=== PATIENT | female | born 1950 | race Caucasian/White ===

== ENCOUNTER 2018-08-05 10:02 | Outpatient (CLI) | payer MEDICARE, OTHER, SELFPAY ==
[2018-08-05 10:49] LABS: Absolute Basophil Count 0.05 k/cumm (0.0-0.2); Absolute Eosinophil Count 0.37 k/cumm (0.0-0.7); Absolute Lymphocyte Count 1.62 k/cumm (1.2-3.4); Absolute Monocyte Count 0.37 k/cumm (0.11-0.7); Absolute Neutrophil Count 3.42 k/cumm (1.2-6.7); Basophils % 0.9; Eosinophils % 6.3; HCT 42.7 % (36.0-46.0); HGB 13.9 g/dL (12.0-15.5); Lymphocytes % 27.8; Mean Corp. HGB Concentration 32.6 g/dL (32.0-36.0); Monocytes % 6.3; Neutrophils % 58.7; Platelet Count 230 x1000/uL (130-400); RBC 4.64 m/cumm (4.00-5.20); RBC Distribution Width 12.9 % (11.7-14.6); White Blood Cell Count 5.83 k/cumm (4.4-10.8)
[2018-08-05 11:27] LABS: ALT 31 U/L (12-78); AST 26 U/L (15-37); Albumin 3.7 g/dL (3.4-5.0); Alkaline Phosphatase 103 U/L (46-116); Anion Gap 7.5 mmol/L (3-11); BUN 17 mg/dL (7-18); Bilirubin, Total 0.4 mg/dL (0.2-1.0); CO2 29.5 mmol/L (21.0-32.0); CREATININE 0.79 mg/dL (0.55-1.02); Chloride 108 mmol/L (98-107); Glucose 87 mg/dL (70-100); Potassium 4.6 mmol/L (3.5-5.1); Sodium 145 mmol/L (136-145); Total Protein 7.2 g/dL (6.4-8.2)
== END 2018-08-05 10:22 ==
PROVIDERS: PCP Family Medicine; Visit Provider Family Medicine
DX: L71.9 Rosacea, unspecified (principal); K51.90 Ulcerative colitis, unspecified, without complications
CPT/HCPCS: 36415; 80053; 85025

== ENCOUNTER → 2018-10-28 13:56 | Outpatient (BNVA) | payer MEDICARE, OTHER, SELFPAY | PROVIDERS: PCP Family Medicine; Referring Provider Family Medicine; Visit Provider Student in an Organized Health Care Education/Training Program | DX: M17.12 Unilateral primary osteoarthritis, left knee (principal) | CPT/HCPCS: 20610; 99212; 99213; J1040 ==

== ENCOUNTER → 2019-04-02 09:44 | Outpatient (BNVA) | payer MEDICARE, OTHER, SELFPAY | PROVIDERS: PCP Family Medicine; Referring Provider Family Medicine; Visit Provider Student in an Organized Health Care Education/Training Program | DX: M25.562 Pain in left knee (principal); M17.12 Unilateral primary osteoarthritis, left knee | CPT/HCPCS: 20610; 99213; J1040 ==

== ENCOUNTER 2019-06-04 19:00 | Outpatient (REF) | payer MEDICARE, OTHER, SELFPAY | END 2019-06-04 19:20 | LOC: LBN 19:00 | PROVIDERS: PCP Family Medicine; Visit Provider Nurse Practitioner Family | DX: N89.8 Other specified noninflammatory disorders of vagina (principal) | CPT/HCPCS: 87480; 87510; 87660 ==

== ENCOUNTER → 2019-06-16 09:13 | Outpatient (BNVA) | payer MEDICARE, OTHER, SELFPAY | PROVIDERS: PCP Family Medicine; Referring Provider Family Medicine; Visit Provider Student in an Organized Health Care Education/Training Program | DX: M25.562 Pain in left knee (principal); M17.12 Unilateral primary osteoarthritis, left knee; Z98.890 Other specified postprocedural states | CPT/HCPCS: 99213 ==

== ENCOUNTER 2019-08-02 01:07 | Outpatient (CLI) | payer MEDICARE, OTHER, SELFPAY ==
[2019-08-02 14:10] LABS: Abs Immature Grans 0.01 k/cumm (0.0-0.09); Absolute Basophil Count 0.05 k/cumm (0.0-0.2); Absolute Eosinophil Count 0.27 k/cumm (0.0-0.7); Absolute Lymphocyte Count 1.51 k/cumm (1.2-3.4); Absolute Monocyte Count 0.36 k/cumm (0.11-0.7); Absolute Neutrophil Count 3.21 k/cumm (1.2-6.7); Basophils % 0.9; HCT 39.1 % (36.0-46.0); HGB 12.6 g/dL (12.0-15.5); Immature Grans % 0.2; Lymphocytes % 27.9; Mean Corp. HGB Concentration 32.2 g/dL (32.0-36.0); Mean Corpuscular Hemoglobin 30.4 pg (27.0-33.0); Mean Corpuscular Volume 94.4 fL (80-95); Mean Platelet Volume 9.3 fL (8.0-11.0); Monocytes % 6.7; Neutrophils % 59.3; Platelet Count 252 x1000/uL (130-400); RBC 4.14 m/cumm (4.00-5.20); RBC Distribution Width 12.4 % (11.7-14.6); White Blood Cell Count 5.41 k/cumm (4.4-10.8)
[2019-08-02 14:26] LABS: ALT 50 U/L (14-59); AST 30 U/L (15-37); Albumin 3.4 g/dL (3.4-5.0); Alkaline Phosphatase 120 U/L (46-116); BUN 19 mg/dL (7-18); Bilirubin, Total 0.3 mg/dL (0.2-1.0); CREATININE 0.88 mg/dL (0.55-1.02); Calcium 8.9 mg/dL (8.5-10.1); Chloride 107 mmol/L (98-107); Glucose 120 mg/dL (70-100); Potassium 4.9 mmol/L (3.5-5.1); Sodium 143 mmol/L (136-145); TSH 0.79 uIU/mL (0.36-3.74); Total Protein 6.5 g/dL (6.4-8.2); Vitamin B12 385 pg/mL (193-986)
[2019-08-03 08:59] LABS: Hemoglobin A1C 5.7 % (4.5-6.2)
== END 2019-08-02 01:27 ==
PROVIDERS: PCP Family Medicine; Visit Provider Family Medicine
DX: D64.9 Anemia, unspecified (principal); K51.90 Ulcerative colitis, unspecified, without complications; M85.80 Other specified disorders of bone density and structure, unspecified site; R73.01 Impaired fasting glucose
CPT/HCPCS: 36415; 80053; 82607; 83036; 84443; 85025

== ENCOUNTER 2019-08-12 11:22 | Outpatient (CLI) | payer MEDICARE, OTHER, SELFPAY ==
--- NOTE | 2019-08-12 10:29 | DI.RAD_ITS ---
EXAM: XR FOOT LT COMPLETE INDICATION: L foot pain. COMPARISON: No exams were available for comparison TECHNIQUE: 2D digital imaging was performed. FINDINGS: Three views were obtained. There is small osteophyte at the site of attachment of plantar fascia on the calcaneus. Mild degenerative changes of the joints of the midfoot and forefoot noted. No other significant bony abnormality seen.
== END 2019-08-12 11:42 ==
PROVIDERS: PCP Family Medicine; Referring Provider Family Medicine; Visit Provider Student in an Organized Health Care Education/Training Program
DX: M79.672 Pain in left foot (principal); M19.072 Primary osteoarthritis, left ankle and foot; M25.772 Osteophyte, left ankle
CPT/HCPCS: 99214; 73630

== ENCOUNTER → 2019-10-08 09:54 | Outpatient (BNVA) | payer MEDICARE, OTHER, SELFPAY | PROVIDERS: PCP Family Medicine; Referring Provider Family Medicine; Visit Provider Student in an Organized Health Care Education/Training Program | DX: M17.12 Unilateral primary osteoarthritis, left knee (principal); M25.562 Pain in left knee | CPT/HCPCS: 20610; 99213; J1040 ==

== ENCOUNTER 2020-08-08 03:49 | Outpatient (CLI) | payer MEDICARE, OTHER, SELFPAY ==
[2020-08-08 12:50] LABS: Abs Immature Grans 0.01 10^3/uL (0.0-0.06); Absolute Basophil Count 0.06 10^3/uL (0.0-0.2); Absolute Lymphocyte Count 1.73 10^3/uL (1.2-3.4); Absolute Monocyte Count 0.31 10^3/uL (0.1-0.8); Absolute Neutrophil Count 2.52 10^3/uL (1.2-6.7); Basophils % 1.2; HCT 40.8 % (36.0-46.0); Immature Grans % 0.2; Lymphocytes % 34.4; MCH 30.2 pg (27.0-33.0); MCHC 31.9 % (32.0-36.0); MCV 94.7 fL (80-95); MPV 9.6 fL (8.0-11.0); Monocytes % 6.2; Nucleated RBC 0 %; Platelet Count 254 10^3/uL (130-400); RBC 4.31 10^6/uL (3.93-5.22); RDW 12.5 % (11.7-14.6); RDW-SD 43.5 fL; WBC 5.03 10^3/uL (4.4-10.8)
[2020-08-08 13:04] LABS: Hemoglobin A1C 5.3 % (<5.7)
[2020-08-08 13:05] LABS: ALT 37 U/L (14-59); AST 33 U/L (15-37); Albumin 3.9 g/dL (3.4-5.0); Alkaline Phosphatase 108 U/L (46-116); Anion Gap 6.7 mmol/L (3-11); BUN 21 mg/dL (7-18); Bilirubin, Total 0.5 mg/dL (0.2-1.0); CO2 28.3 mmol/L (21.0-32.0); CREATININE 0.95 mg/dL (0.55-1.02); Calcium 9.4 mg/dL (8.5-10.1); Chloride 107 mmol/L (98-107); Estimated GFR 58.16 (mL/min/1.73m2); Glucose 92 mg/dL (74-106); Potassium 5.1 mmol/L (3.5-5.1); Sodium 142 mmol/L (136-145); Total Protein 7.2 g/dL (6.4-8.2)
== END 2020-08-08 04:09 ==
PROVIDERS: PCP Family Medicine; Visit Provider Family Medicine
DX: R73.01 Impaired fasting glucose (principal); D64.9 Anemia, unspecified
CPT/HCPCS: 36415; 80053; 83036; 85025

== ENCOUNTER 2021-01-18 03:22 | Outpatient (CLI) | payer MEDICARE, OTHER, SELFPAY ==
[2021-01-18 12:13] LABS: Abs Immature Grans 0.01 10^3/uL (0.0-0.06); Absolute Basophil Count 0.06 10^3/uL (0.0-0.2); Absolute Eosinophil Count 0.19 10^3/uL (0.0-0.7); Absolute Lymphocyte Count 1.49 10^3/uL (1.2-3.4); Absolute Monocyte Count 0.31 10^3/uL (0.1-0.8); Absolute Neutrophil Count 2.65 10^3/uL (1.2-6.7); Basophils % 1.3; HCT 40.1 % (36.0-46.0); Immature Grans % 0.2; Lymphocytes % 31.6; MCH 30.1 pg (27.0-33.0); MCHC 32.4 % (32.0-36.0); MCV 92.8 fL (80-95); MPV 9.4 fL (8.0-11.0); Monocytes % 6.6; Neutrophils % 56.3; Nucleated RBC 0 %; Platelet Count 244 10^3/uL (130-400); RBC 4.32 10^6/uL (3.93-5.22); RDW 12.1 % (11.7-14.6); RDW-SD 41.5 fL; WBC 4.71 10^3/uL (4.4-10.8)
[2021-01-18 12:29] LABS: Hemoglobin A1C 5.8 % (<5.7)
[2021-01-18 13:10] LABS: ALT 40 U/L (14-59); AST 30 U/L (15-37); Albumin 3.8 g/dL (3.4-5.0); Alkaline Phosphatase 98 U/L (46-116); BUN 20 mg/dL (7-18); Bilirubin, Total 0.4 mg/dL (0.2-1.0); C-Reactive Protein 0.19 mg/dL (0.0-0.3); CREATININE 0.9 mg/dL (0.55-1.02); Calcium 9.2 mg/dL (8.5-10.1); Chloride 107 mmol/L (98-107); Glucose 109 mg/dL (74-106); Potassium 5.4 mmol/L (3.5-5.1); Sodium 142 mmol/L (136-145); Total Protein 7.1 g/dL (6.4-8.2)
[2021-01-18 16:27] LABS: ESR 9 mm/hr (<or=30)
== END 2021-01-18 03:23 | disposition home or self-care (01) ==
LOC: LBO 03:22
PROVIDERS: PCP Family Medicine; Visit Provider Nurse Practitioner Adult Health
DX: R73.01 Impaired fasting glucose (principal); K52.9 Noninfective gastroenteritis and colitis, unspecified; K51.00 Ulcerative (chronic) pancolitis without complications
CPT/HCPCS: 36415; 80053; 85652; 83036; 85025; 86140

== ENCOUNTER 2021-02-26 10:30 | Outpatient (CLI) | payer MEDICARE, OTHER, SELFPAY ==
--- NOTE | 2021-02-26 10:28 | DI.RAD_ITS ---
EXAM: XR SHOULDER RT COMPLETE 2+V CLINICAL HISTORY: R shoulder pain. TECHNIQUE: 2D digital imaging was performed. COMPARISON: No exams were available for comparison FINDINGS: BONES: No acute fracture is present. No bony destructive lesion is seen. JOINTS: No dislocation present. SOFT TISSUE: Normal. IMPRESSION: No acute abnormality. If there is concern for internal derangement, an MRI should be considered for further evaluation. DATA REPOSITORY: RADIATION DOSE DELIVERED:
== END 2021-02-26 10:31 | disposition home or self-care (01) ==
LOC: DIORS 10:30
PROVIDERS: PCP Family Medicine; Referring Provider Family Medicine; Visit Provider Student in an Organized Health Care Education/Training Program
DX: M25.511 Pain in right shoulder (principal); M75.81 Other shoulder lesions, right shoulder
CPT/HCPCS: 20610; 73030; J1040

== ENCOUNTER 2021-08-17 01:44 | Outpatient (CLI) | payer MEDICARE, OTHER, SELFPAY ==
[2021-08-17 13:10] LABS: ALT 46 U/L (14-59); AST 37 U/L (15-37); Albumin 3.7 g/dL (3.4-5.0); Alkaline Phosphatase 100 U/L (46-116); BUN 17 mg/dL (7-18); Bilirubin, Total 0.4 mg/dL (0.2-1.0); CREATININE 0.9 mg/dL (0.55-1.02); Calcium 9.1 mg/dL (8.5-10.1); Chloride 108 mmol/L (98-107); Glucose 83 mg/dL (74-106); Potassium 5.6 mmol/L (3.5-5.1); Sodium 144 mmol/L (136-145); Total Protein 6.8 g/dL (6.4-8.2)
== END 2021-08-17 01:45 | disposition home or self-care (01) ==
LOC: LOS 02:03
DX: K51.90 Ulcerative colitis, unspecified, without complications (principal); G62.9 Polyneuropathy, unspecified; G25.0 Essential tremor
CPT/HCPCS: 36415; 80053

== ENCOUNTER 2021-10-03 01:08 | Outpatient (CLI) | payer MEDICARE, OTHER, SELFPAY ==
--- NOTE | 2021-10-03 07:00 | DI.RAD_ITS ---
Exam(s) XR LUMBAR SPINE COMPLETE EXAM: XR LUMBAR SPINE COMPLETE CLINICAL HISTORY: left sciatica pain, not responding to PT,M54.32. TECHNIQUE: 2D digital imaging was performed. COMPARISON: No exams were available for comparison FINDINGS: Transitional anatomy. The 12th ribs are rudimentary. There is no evidence compression fracture. However, there is significant anterolisthesis of L4 upon L5 with approximately 9 millimeters anterior slippage of L4 upon L5 due to advanced facet arthropathy . There is also advanced narrowing of the L4-5 disc space. There is moderate narrowing of the L5-S1 disc space without listhesis at this level. L3-4 level exhibits normal disc height as do the levels above this. There is some facet arthropathy of the lower 3 levels. Sacroiliac joints appear unrema rkable. No significant scoliosis. No osseous lesions IMPRESSION: Significant degenerative anterolisthesis L4 upon L5 well as advanced disc space narrowing at this lev el. Other findings as above. DATA REPOSITORY: RADIATION DOSE DELIVERED:
== END 2021-10-03 01:28 ==
DX: M51.17 Intervertebral disc disorders with radiculopathy, lumbosacral region; M47.27 Other spondylosis with radiculopathy, lumbosacral region
CPT/HCPCS: 72110

== ENCOUNTER 2022-03-06 02:46 | Outpatient (CLI) | payer MEDICARE, SELFPAY ==
[2022-03-06 10:48] LABS: Abs Immature Grans 0.01 10^3/uL (0.0-0.06); Absolute Basophil Count 0.06 10^3/uL (0.0-0.2); Absolute Eosinophil Count 0.34 10^3/uL (0.0-0.7); Absolute Lymphocyte Count 1.69 10^3/uL (1.2-3.4); Absolute Monocyte Count 0.39 10^3/uL (0.1-0.8); Absolute Neutrophil Count 2.51 10^3/uL (1.2-6.7); Basophils % 1.2; Eosinophils % 6.8; HGB 12.8 g/dL (11.2-15.7); Immature Grans % 0.2; Lymphocytes % 33.8; MCV 93.7 fL (80-95); MPV 9.2 fL (8.0-11.0); Monocytes % 7.8; Neutrophils % 50.2; Nucleated RBC 0 %; Platelet Count 226 10^3/uL (130-400); RBC 4.27 10^6/uL (3.93-5.22); RDW 12.4 % (11.7-14.6); RDW-SD 43.2 fL
[2022-03-06 11:56] LABS: ALT 63 U/L (14-59); AST 35 U/L (15-37); Albumin 3.6 g/dL (3.4-5.0); Alkaline Phosphatase 151 U/L (46-116); Bilirubin, Direct 0.1 mg/dL (0.0-0.2); Bilirubin, Total 0.4 mg/dL (0.2-1.0); Total Protein 6.4 g/dL (6.4-8.2)
== END 2022-03-06 02:47 | disposition home or self-care (01) ==
LOC: LBO 02:46
PROVIDERS: Visit Provider Nurse Practitioner Adult Health
DX: K51.00 Ulcerative (chronic) pancolitis without complications (principal)
CPT/HCPCS: 36415; 80076; 85025; 86140

== ENCOUNTER 2022-03-20 04:36 | Outpatient (CLI) | payer MEDICARE, SELFPAY ==
[2022-03-20 13:58] LABS: Iron 83 ug/dL (50-170); Total Iron Binding Capacity 275 ug/dL (250-450); Transferrin Sat 30 % (15-50)
[2022-03-20 14:09] LABS: GGT 167 U/L (5-55); TSH 0.53 uIU/mL (0.36-3.74)
[2022-03-20 14:36] LABS: Ferritin 121 ng/mL (8-252)
[2022-03-21 08:58] LABS: HBs Antibody, Quant <3.1 mIU/mL (See Note); Hepatitis B Surface Ab Negative (See Note)
[2022-03-21 09:08] LABS: Hepatitis B Surface Ag Negative (Negative)
[2022-03-21 09:45] LABS: Hepatitis C Ab w Rflx HCV PCR Negative (Negative)
[2022-03-21 09:50] LABS: IgA 228 mg/dL (85-499)
[2022-03-21 09:54] LABS: Hep A Total Ab w Rflx IgM Negative (Negative)
[2022-03-21 15:10] LABS: ANA Interpretation Negative (Negative)
[2022-03-21 19:50] LABS: Tissue Transglutaminase Ab IgA <1.2 U/mL
[2022-03-22 10:07] LABS: Ceruloplasmin 23.8 mg/dL
[2022-03-22 13:40] LABS: Smooth Muscle Ab Screen Negative (Negative)
== END 2022-03-20 04:37 | disposition home or self-care (01) ==
LOC: LBO 04:36
PROVIDERS: Visit Provider Nurse Practitioner Adult Health
DX: R79.89 Other specified abnormal findings of blood chemistry (principal); K51.00 Ulcerative (chronic) pancolitis without complications
CPT/HCPCS: 36415; 82390; 82784; 86706; 86709; 86803; 87340; 82728; 82977; 83516; 83540; 83550; 84443; 86038; 86255

== ENCOUNTER 2022-05-16 03:34 | Outpatient (CLI) | payer MEDICARE, SELFPAY ==
[2022-05-16 13:02] LABS: ALT 40 U/L (14-59); AST 33 U/L (15-37); Albumin 3.7 g/dL (3.4-5.0); Alkaline Phosphatase 115 U/L (46-116); Bilirubin, Direct 0.1 mg/dL (0.0-0.2); Bilirubin, Total 0.4 mg/dL (0.2-1.0); C-Reactive Protein 0.21 mg/dL (0.0-0.3); GGT 119 U/L (5-55); Total Protein 7.4 g/dL (6.4-8.2)
== END 2022-05-16 03:35 | disposition home or self-care (01) ==
LOC: LBO 03:34
PROVIDERS: Visit Provider Nurse Practitioner Adult Health
DX: K51.00 Ulcerative (chronic) pancolitis without complications (principal); R79.89 Other specified abnormal findings of blood chemistry
CPT/HCPCS: 36415; 80076; 82977; 86140

== ENCOUNTER 2022-07-16 03:35 | Outpatient (CLI) | payer MEDICARE, SELFPAY ==
[2022-07-16 16:01] LABS: ALT 38 U/L (14-59); AST 31 U/L (15-37); Albumin 3.6 g/dL (3.4-5.0); Alkaline Phosphatase 113 U/L (46-116); Bilirubin, Direct 0.1 mg/dL (0.0-0.2); Bilirubin, Total 0.3 mg/dL (0.2-1.0); GGT 108 U/L (5-55); Total Protein 7.2 g/dL (6.4-8.2)
== END 2022-07-16 03:36 | disposition home or self-care (01) ==
LOC: LBO 03:35
PROVIDERS: Visit Provider Nurse Practitioner Adult Health
DX: K51.00 Ulcerative (chronic) pancolitis without complications (principal); R79.89 Other specified abnormal findings of blood chemistry
CPT/HCPCS: 36415; 80076; 82977; 86140

== ENCOUNTER 2022-07-23 10:15 | Emergency (ER) | payer MEDICARE, SELFPAY ==
--- NOTE | 2022-07-23 10:15 | RT.EKG_ITS ---
APPROVED REPORT Exam: Resting ECG Reason for Exam: arm numbness Patient Location: E HR:58 bpm ECG Measurements Heart Rate 58 AXIS OR 176 P 41 QRSd 94 QRS -16 QT 436 T -14 QTc 428 Conclusion Sinus bradycardia...rate< 60 Probable left atrial enlargement...P >50mS, <-0.10mV V1 Abnormal T, consider ischemia, anterior leads...T <-0.20mV, V2-V4. Sinus. T wave inversion in lead III, V3-4. This was no different than old EKG 10/17/2017. No STEMI. I have reviewed and interpreted ECG and agree with software generated interpretation.
[2022-07-23 10:19] VITALS: BP 184/73; PULSE 66; RESP 20; TEMP 37; O2SAT 98
[2022-07-23 10:42] VITALS: RESP 17
[2022-07-23 10:48] LABS: Abs Immature Grans 0.01 10^3/uL (0.0-0.06); Absolute Basophil Count 0.06 10^3/uL (0.0-0.2); Absolute Eosinophil Count 0.16 10^3/uL (0.0-0.7); Absolute Lymphocyte Count 2.02 10^3/uL (1.2-3.4); Absolute Monocyte Count 0.45 10^3/uL (0.1-0.8); Absolute Neutrophil Count 3.97 10^3/uL (1.2-6.7); Basophils % 0.9; Eosinophils % 2.4; HCT 40.8 % (36.0-46.0); HGB 13.7 g/dL (11.2-15.7); Immature Grans % 0.1; Lymphocytes % 30.3; MCH 30.4 pg (27.0-33.0); MCHC 33.6 % (32.0-36.0); MCV 91 fL (80-95); MPV 9.1 fL (8.0-11.0); Monocytes % 6.7; Neutrophils % 59.6; Platelet Count 253 10^3/uL (130-400); RDW 12.2 % (11.7-14.6); RDW-SD 40.5 fL; WBC 6.67 10^3/uL (4.4-10.8)
--- NOTE | 2022-07-23 11:01 | DI.MRI_ITS ---
Exam(s) MR BRAIN WO EXAM: MR BRAIN WO CLINICAL HISTORY: L eye blurry vision,L arm numb/weak, r/o cva TECHNIQUE: Multiplanar multisequence MRI of the brain was performed. COMPARISON: MR MR ANGIO BRAIN WO from 07/23/2022 FINDINGS: The ventricular system is normal in appearance. There are minimal areas of signal abnormality in periventricular white matter, not unusual in this ag e group.. No other signal abnormality identified in the brain. The orbital and temporal bone structures appear intact as does the pituitary. Diffusion weighted imaging shows no evidence of infarction. Susceptibility weighted imaging shows no evidence of intracranial hemorrhage. There is normal flow void in the [place] vasculature. IMPRESSION: Normal brain MR for age I. No evidence of acute or subacute infarction. DATA REPOSITORY:
--- NOTE | 2022-07-23 11:01 | DI.MRI_ITS ---
Exam(s) MR ANGIO BRAIN WO EXAM: MR ANGIO BRAIN WO INDICATION: L eye blurry, L arm numb/weak, r/o cva. COMPARISON: MR MR ANGIO NECK WO from 07/23/2022 TECHNIQUE: MR angiography of the phreav-nf-Lqwtdi region was performed utilizing 3D zyfw-rq-edobiz i maging. FINDINGS: The visualized internal carotid arteries appear intact, no aneurysm, stenosis, or dissection. Visualized vertebral arteries appear intact, no aneurysm, stenosis or dissection. Basilar artery appears normal, no aneurysm, stenosis, or dissection. The anterior cerebral arteries and major branch vessels appear intact. No aneurysm, stenosis, or dis section. The middle cerebral arteries and major branch vessels appear intact. No aneurysm, stenosis, or disse ction. The posterior cerebral arteries and major branch vessels appear intact. No aneurysm, stenosis, or di ssection. IMPRESSION: Negative MR angiography, [place] region.
--- NOTE | 2022-07-23 11:01 | DI.MRI_ITS ---
Exam(s) MR ANGIO NECK WO EXAM: MR ANGIO NECK WO CLINICAL HISTORY: L neck tight/L eye blurry,L arm numb/weak, r/o cva. TECHNIQUE: Multiplanar multisequence MRI was performed. COMPARISON: No exams were available for comparison FINDINGS: MR angiography of the cervical region was performed utilizing 2D krmt-zd-rcguzg and 3D qgki-qw-qazsfp imaging. The common, internal, and external carotid arteries are unremarkable in appearance with no evidence of stenosis, dissection, or aneurysm. Visualized vertebral arteries appear intact with no evidence of aneurysm, stenosis, or dissection. Portions of the vertebral arteries are nonvisualized. IMPRESSION: Negative MR angiography, cervical region. DATA REPOSITORY:
--- NOTE | 2022-07-23 11:04 | ED.GENADUL_ITS ---
Discharge Plan Disposition Patient Disposition: HOME Condition: Improving Discharge Details Clinical Impression: TIA (transient ischemic attack) Primary Care Provider: Jeanette Goff ED Provider: Lolly Flower Home Meds and New Rx's Prescriptions: New clopidogrel [Plavix] 75 mg tablet 75 mg PO DAILY Qty: 30 0RF Continued Antacid (calcium carb-mag hyd) 1,000-200 mg tablet,chewable PO cholecalciferol (vitamin D3) 400 unit capsule 800 unit PO DAILY epinephrine [EpiPen 2-Rosas] 0.3 mg/0.3 mL auto-injector 0.3 mg IM ONCE Qty: 2 1RF Rx Instructions: as a single dose triamcinolone acetonide 0.5 % cream 1 applic TP .Twice a week Qty: 15 5RF Rx Instructions: Apply tiny amount to vulva twice a week mesalamine 1.2 gram tablet,delayed release (DR/EC) 2.4 gm PO DAILY Pramosone 1-1 % cream 1 applic topical TID Qty: 28.4 2RF Rx Instructions: allow at least 3 hours between applications Discharge Instructions Instructions: Transient Ischemic Attack (ED) Additional Instructions: Your imaging today is reassuring and shows no onset of acute stroke. It has been recommended by the neurologist Dr. Smiley to start dual antiplatelet therapy per concern for a TIA or transient ischemic attack which is a warning sign of a stroke. Start taking a daily 81 mg aspirin tomorrow. A prescription for Plavix to take once daily has been sent electronically to your pharmacy to start tomorrow. An appointment has been made for you with the neurologist Dr. Smiley on July 30 at 1:45 PM. An order has been placed for an outpatient cafeteria monitor. You will be contacted by the respiratory therapy department for scheduling this test. You have also been placed on care management list to arrange for a follow-up appointment with your primary care doctor for re-evaluation and for referral for echocardiogram. Return immediately to the emergency department if you develop any worsening or new concerning symptoms. Referrals: Mary Smiley MD [ [facility] STAFF PHYSICIAN] - Discharge Orders Other Ambulatory Orders: Cardiac Event Recorder (STAT) Timeframe: [id number] Facility: [facility] - Location: Respiratory Therapy Ordered By: Lolly Flower Discharge Data Discharge Date/Time-TO BE ENTERED AT DEPARTURE: 07/23/22 15:02 Discharge Physician: Lolly Flower Medical Decision Making 71-year-old female with a history of ulcerative colitis, breast cancer with left mastectomy who presents with left arm weakness and numbness today associated with brief left eye blurry vision and left neck tightness. This is her fourth episode of left arm weakness and numbness occurring in the past 2 weeks. She has not had any blurry vision or left neck tightness with her previous episodes. Blood pressure hypertensive at 184/73 on arrival. EKG notes a rate of 58, sinus with T wave inversion and ST depression in V3 and V4 and lead III but no STEMI. No old EKG to compare. She has no focal deficits on exam. She appears significantly anxious. Differential diagnosis includes TIA, CVA, carotid artery dissection, cervical spinal stenosis, cervical disc herniation, peripheral neuropathy, electrolyte abnormality. Will obtain screening labs and refer for MRI brain and MRA brain and neck imaging. Labs and imaging reviewed and unremarkable. MRI and MRA brain and negative. Case discussed with Dr. Smiley who feels that patient symptoms are likely secondary to a TIA. She is recommending dual antiplatelet therapy for 30 days. Recommends a dose of 81 mg aspirin now and to load with 300 mg of Plavix. Recommends outpatient echocardiogram and cafeteria monitor. An appointment has been made with Dr. Smiley for July 30 at 1:45 PM. Discussed with patient that her EKG noted T wave inversion and inferior and anterior leads but no evidence of STEMI. Able to obtain old EKG on file from [facility] records which notes similar findings of T wave inversion and so this EKG today is unchanged. Patient has had no complaints of chest pain or shortness of breath and would like to go home. Disposition decision made weighing the risks and benefits of hospitalization versus outpatient treatment, the risk for further decompensation, and the patient's wishes. Do not see an indication for additional cardiac work-up at this time. Patient placed on care management list to arrange for a follow-up appointment with her primary care doctor within the next week for reevaluation and for referral for echocardiogram and cafeteria monitor. Usual and customary return precautions given prior to discharge. Medical Records Medical records reviewed: Yes I reviewed the patient's medical records. Lab Data Lab results reviewed: Yes I reviewed the patient's lab results. Labs: Laboratory Tests Range/Units 07/23/22 07/23/22 07/23/22 10:40 10:40 10:40 WBC (4.4-10.8) 10^3/uL 6.67 RBC (3.93-5.22) 10^6/uL 4.50 Hgb (11.2-15.7) g/dL 13.7 Hct (36.0-46.0) % 40.8 MCV (80-95) fL 91 MCH (27.0-33.0) pg 30.4 MCHC (32.0-36.0) % 33.6 RDW (11.7-14.6) % 12.2 Plt Count (130-400) 10^3/uL 253 MPV (8.0-11.0) fL 9.1 Immature Gran % 0.1 Neutrophils % 59.6 Lymphocytes % 30.3 Monocytes % 6.7 Eosinophils % 2.4 Basophils % 0.9 Nucleated RBC % (0.0-0.3) % 0.0 Absolute Neutrophils (1.2-6.7) 10^3/uL 3.97 Absolute Lymphocytes (1.2-3.4) 10^3/uL 2.02 Absolute Monocytes (0.1-0.8) 10^3/uL 0.45 Absolute Eosinophils (0.0-0.7) 10^3/uL 0.16 Absolute Basophils (0.0-0.2) 10^3/uL 0.06 PT (9.3-11.0) sec 9.6 INR (0.9-1.1) 1.0 APTT (21.0-27.5) sec 26.6 Sodium (136-145) mmol/L 140 Potassium (3.5-5.1) mmol/L 3.9 Chloride (98-107) mmol/L 104 Carbon Dioxide (21.0-32.0) mmol/L 27.3 Anion Gap (3-11) mmol/L 8.7 BUN (7-18) mg/dL 22 H Creatinine (0.55-1.02) mg/dL 0.9 Est GFR (CKD-EPI 2020) (mL/min/1.73m2) 67.92 Glucose (74-106) mg/dL 106 Calcium (8.5-10.1) mg/dL 9.3 Magnesium (1.8-2.4) mg/dL 2.1 Total Bilirubin (0.2-1.0) mg/dL 0.5 AST (15-37) U/L 34 ALT (14-59) U/L 36 Alkaline Phosphatase (46-116) U/L 122 H Troponin I (<or=60) ng/L < 50 Total Protein (6.4-8.2) g/dL 8.0 Albumin (3.4-5.0) g/dL 3.9 ECG Data Attestation: I personally reviewed and interpreted this ECG (s) as follows: Interpretation: rate of 58, sinus, T wave inversion and less than 1mm ST depression in V3-4. No STEMI. HPI General Mode of arrival: ambulatory . Date/Time Provider Initiated Documentation: 07/23/22 10:20 . Limitations to Documentation: no limitations . Information obtained by: patient . HPI Narrative: Patient is a 71-year-old female who presents with left arm numbness and weakness this morning with right left eye blurry vision and a sensation of tightness in the left side of her neck. Patient states this is the fourth episode of left arm weakness and numbness occurring in the last 2 weeks. She states it usually last several minutes and then resolves. She states today she was cutting vegetables when she noted left arm weakness and numbness which lasted approximately 15 minutes. She states the left arm still feels heavy but most of the weakness and numbness has improved. She states around this time she noticed her last eye vision was fuzzy for approximately 2 minutes. She states she also noted this morning that her left neck feels tight . She states she has had 3 other episodes of left arm weakness and numbness lasting several minutes occurring over the past 2 weeks for which she saw her PCP and was told she potentially has a peripheral neuropathy but that if her symptoms change or per sist, to come to the emergency department for further evaluation. She denies any headache, chest pain or shortness of breath with these episodes. She does admit to a feeling of lightheadedness this morning but states she feels she may be dehydrated. Related Data Home Medications Medication Instructions Recorded Confirmed calcium carbonate 1,000 tab PO 08/03/18 07/17/22 mg-magnesium hydroxide 200 mg chewable tablet (Antacid (calcium carb-magnesium hyd)) cholecalciferol (vitamin D3) 10 800 unit PO DAILY 08/03/18 07/23/22 mcg (400 unit) capsule mesalamine 1.2 gram tablet,delayed 2.4 gm PO DAILY 08/04/18 07/23/22 release epinephrine 0.3 mg/0.3 mL 0.3 mg (0.3 mL) IM ONCE #2 ea 08/21/21 07/23/22 injection, auto-injector (EpiPen 2-Rosas) triamcinolone acetonide 0.5 % 1 applic topical .Twice a week #15 08/21/21 07/23/22 topical cream grams hydrocortisone-pramoxine 1 %-1 % 1 applic topical TID #28.4 grams 07/08/22 07/23/22 topical cream (Pramosone) clopidogrel 75 mg tablet (Plavix) 75 mg PO DAILY #30 tabs 07/23/22 Previous Rx's Medication Instructions Recorded epinephrine 0.3 mg/0.3 mL 0.3 mg (0.3 mL) IM ONCE #2 ea 08/21/21 injection, auto-injector (EpiPen 2-Rosas) triamcinolone acetonide 0.5 % 1 applic topical .Twice a week #15 08/21/21 topical cream grams hydrocortisone-pramoxine 1 %-1 % 1 applic topical TID #28.4 grams 07/08/22 topical cream (Pramosone) clopidogrel 75 mg tablet (Plavix) 75 mg PO DAILY #30 tabs 07/23/22 Allergies Allergy/AdvReac Type Severity Reaction Status Date / Time Tetracyclines Allergy Mild SKIN RASH Verified 07/23/22 10:23 bee venom protein (honey bee) Allergy Unknown Verified 07/23/22 10:23 General Stated Complaint: GenMedical YOSVANY: 3 Review of Systems All systems reviewed & are unremarkable except as noted in HPI and below Constitutional Constitutional: Denies chills, Denies excessive sweating, Denies fatigue, Denies fever(s), Denies weakness and Denies weight loss Eyes Eyes: Reports system reviewed and no additional complaints, except as documented and Denies blurry vision ENT Ears, Nose, Mouth, and Throat: Denies vertigo, Denies dizziness, Denies otalgia, Denies nasal congestion, Denies sore throat and Denies throat swelling Cardiovascular Cardiovascular: Denies chest pain, Denies syncope, Denies rapid heart rate and Denies dyspnea Respiratory Respiratory: Denies chest congestion, Denies cough, Denies pain on inspiration and Denies dyspnea Gastrointestinal Gastrointestinal: Denies abdominal pain, Denies diarrhea and Denies vomiting Genitourinary Genitourinary: Denies hematuria, Denies dysuria and Denies flank pain Musculoskeletal Musculoskeletal: Denies back pain and Denies joint swelling Integumentary/Breasts Skin/Breast: Denies lesions and Denies rash Neurologic Neurologic: Denies behavioral changes, Denies confusion, Denies vertigo, Denies dizziness, Denies syncope, Denies localized weakness and Denies weakness Comments: L arm numbness/weakness, L eye fuzzy Psychiatric Psychiatric: Denies behavioral changes, Denies confusion and Denies depression Endocrine Endocrine: Denies excessive sweating and Denies fatigue Hematologic/Lymphatic Hematologic/Lymphatic: Denies easy bruising and Denies lymphadenopathy Allergic/Immunologic Allergic/Immunologic: Denies throat swelling PFSH All Active Problems (Updated 07/23/22 @ 14:33 by Lolly Flower DO) TIA (transient ischemic attack) (Acute) Left shoulder pain (Acute) Sciatica of left side (Acute) Left leg pain (Acute) Right rotator cuff tendonitis (Acute) Injected: 02/26/2021 Right shoulder pain (Acute) Cerumen impaction (Acute) Peroneal tendonitis of left lower extremity (Acute) IFG (impaired fasting glucose) (Acute) Anemia (Acute) History of section (Acute) History of tobacco use (Acute) Ulcerative colitis (Acute) colonoscopies: ; ; 11/27; 08/29-flare vidal colitis; 09/07/10-no active disease Spinal stenosis (Acute) Rosacea (Acute) Primary osteoarthritis of left knee (Acute 10/27/17) Injected: 10/28/2018, 04/02/2019 Peripheral polyneuropathy (Acute 08/20/17) Osteopenia (Ac[place]) [place] [facility] [place] [facility] [place]ORE -1.8 LUMBAR SPINE Ophthalmic migraine (Acute 07/24/17) Malignant neoplasm of breast (female) (Acute) 1999 and 2012 -left; neg. BRCA testing; S/P mastectomy; tamoxifen, [place] arimi [place] [facility] [place] recurrence as of 2021 Essential tremor (Acute 08/20/17) Medical History IFG (impaired fasting glucose) Surgical History section X 1 [place] [facility] [place] History (Updated 08/22/21 @ 11:05 by Leora Avalos) Mother , 36 Benign tumor Father , 66 Stomach cancer Sister Neoplasm BREAST Breast cancer Maternal Grandfather , age 68 Stomach cancer Paternal Grandfather , 90s No problems noted. Maternal Grandmother , OLD AGE at age 104. No problems noted. Paternal Grandmother , OLD AGE in her 90s No problems noted. Son No problems noted. Son No problems noted. Social History (Updated 08/22/21 @ 16:29 by Leora Avalos) Smoking/Tobacco Use Status: Former Tobacco Use Quit Date: 11/24/83 Tobacco: How many years used: 10 Quit status: quit date established Second Hand Exposure: Yes Smoking risk assessment performed?: Yes Alcohol Intake: current Alcohol Intake frequency: 0-2 drinks per day Alcohol type: wine Drug use: Rarely Substance use type: does not use Caregiver/Support person: No Household members: spouse and other Details: 2 Housing: house Communication Needs: Corrective Lenses Do you need help understanding health information?: Rarely Pets and animals: No Sexually active: Yes Do you think of yourself as: straight/heterosexual Current gender identity: female What is your relationship status?: How often do you talk on the phone with friends or family?: three or more times per week How often do you get together with friends or relatives?: three or more times per week How often do you attend cheondoism or mandaen services?: decline to answer Do you belong to any clubs or organized social groups?: no Panel score (0-1 are the most socially isolated patients): 2 What type of physical activity do you participate in: walking, bicycling, swimming and other Details: hiking Duration: 60-90 minutes/day Frequency: 5-6 times per week Louann/Christian: Anglican Special louann needs: No Seatbelt use: always Helmet use: Yes Helmet use: always Drive intox or ride w/intox corrugated fastener driver: No Do you feel safe at home: No Do you feel safe in your relationship?: No Exam Const General: cooperative and no acute distress Orientation: alert, awake and oriented x3 [facility] Head: normal to inspection Ears: hearing grossly normal bilaterally, external ears normal and TM's normal bilaterally General nose exam: external nose normal Face and sinus: normal facial exam Mouth: oral mucosae normal Teeth and gingiva: dentition normal Throat: posterior oropharynx normal Eyes General: appearance normal, both eyes and all related structures Eyelids: eyelids normal Pupils: PERRL EOM: EOM intact bilaterally Neck Neck: normal visual inspection Lymphatic: no lymphadenopathy noted Chest Chest: normal inspection of the chest Resp Effort & Inspection: normal respiratory effort and able to speak in complete sentences Auscultation: clear to auscultation bilaterally Cardio Rate: regular rate Rhythm: regular rhythm GI Inspection: normal to inspection Palpation: soft, not firm, no guarding, no hepatosplenomegaly, no masses and nontender Auscultation: normal bowel sounds Back/Spine/Pelvis Back: no CVA tenderness Skin General skin exam: no rashes or lesions noted Neuro General: patient alert, patient awake, patient oriented x3 and moves all extremities Cranial Nerves: CN's II-XI intact bilaterally Cognition: normal cognition Speech: speech normal Gait: normal gait Motor: muscle tone normal throughout, strength 5/5 throughout and no pronator drift Sensory Exam: no sensory deficits noted Extrem General: normal to inspection, full ROM and capillary refill normal Psych Appearance: grossly normal Mental Status: mental status grossly normal Speech and Movement: speech and movement normal Affect: normal affect Thought Process: normal Course Vital Signs Vital signs: Vital Signs Temperature 98.6 F 07/23/22 10:19 Pulse 66 07/23/22 10:19 Respiratory Rate 20 07/23/22 10:19 Blood Pressure 184/73 H 07/23/22 10:19 Pulse Oximetry 98 07/23/22 10:19 Temperature 98.6 F 07/23/22 10:19 Temperature Source Temporal Artery Scan 07/23/22 10:19 Pulse 66 07/23/22 10:19 Respiratory Rate 17 07/23/22 10:42 Respiratory Effort Non-Labored 07/23/22 10:42 Respiratory Depth Normal 07/23/22 10:42 Respiratory Pattern Normal 07/23/22 10:42 Blood Pressure 184/73 H 07/23/22 10:19 Blood Pressure Position Sitting 07/23/22 10:19 Pulse Oximetry 98 07/23/22 10:19 Oxygen Delivery Method Room Air 07/23/22 10:19 Oxygen Flow Rate 0 07/23/22 10:19 Pain Level 3 07/23/22 10:19 Lab/Test Results Lab/Test Results: Laboratory Tests Range/Units 07/23/22 10:40 WBC (4.4-10.8) 10^3/uL 6.67 RBC (3.93-5.22) 10^6/uL 4.50 Hgb (11.2-15.7) g/dL 13.7 Hct (36.0-46.0) % 40.8 MCV (80-95) fL 91 MCH (27.0-33.0) pg 30.4 MCHC (32.0-36.0) % 33.6 RDW (11.7-14.6) % 12.2 Plt Count (130-400) 10^3/uL 253 MPV (8.0-11.0) fL 9.1 Immature Gran % 0.1 Neutrophils % 59.6 Lymphocytes % 30.3 Monocytes % 6.7 Eosinophils % 2.4 Basophils % 0.9 Nucleated RBC % (0.0-0.3) % 0.0 Absolute Neutrophils (1.2-6.7) 10^3/uL 3.97 Absolute Lymphocytes (1.2-3.4) 10^3/uL 2.02 Absolute Monocytes (0.1-0.8) 10^3/uL 0.45 Absolute Eosinophils (0.0-0.7) 10^3/uL 0.16 Absolute Basophils (0.0-0.2) 10^3/uL 0.06
[2022-07-23 11:07] LABS: PTT Activated 26.6 sec (21.0-27.5); Prothrombin Time 9.6 sec (9.3-11.0)
[2022-07-23 11:10] LABS: ALT 36 U/L (14-59); AST 34 U/L (15-37); Albumin 3.9 g/dL (3.4-5.0); Alkaline Phosphatase 122 U/L (46-116); Anion Gap 8.7 mmol/L (3-11); BUN 22 mg/dL (7-18); Bilirubin, Total 0.5 mg/dL (0.2-1.0); CO2 27.3 mmol/L (21.0-32.0); CREATININE 0.9 mg/dL (0.55-1.02); Calcium 9.3 mg/dL (8.5-10.1); Chloride 104 mmol/L (98-107); Estimated GFR 67.92 (mL/min/1.73m2); Glucose 106 mg/dL (74-106); Magnesium 2.1 mg/dL (1.8-2.4); Potassium 3.9 mmol/L (3.5-5.1); Sodium 140 mmol/L (136-145); Troponin I < 50 ng/L (<or=60)
[2022-07-23] MEDS: LORazepam 20 MG/10 ML VIAL IVP (11:20)
--- NOTE | 2022-07-23 11:25 | DI.CT_ITS ---
Exam(s) CT HEAD WO EXAM: CT HEAD WO CLINICAL HISTORY: L arm numbness, weakness, r/o cva.... TECHNIQUE: Imaging Protocol: Axial computed tomography images with coronal and sagittal reformatted images were created and reviewed COMPARISON: No exams were available for comparison FINDINGS: There is moderate generalized cerebral atrophy. No evidence of acute intracranial hemorrhage, mass effect, or midline shift. The orbital structures are unremarkable. The temporal bone structures appear intact. Calvarium: Normal. Visualized Paranasal sinuses/Mastoids: Clear. IMPRESSION: No evidence of acute intracranial process.. RADIATION DOSE DELIVERED: 682.52mGy.cm Total DLP 682.52mGy.cm Total DLP !Error CTDIvol DATA REPOSITORY: All CT scans at this facility are submitted to the National Radiology Data Registry (NRDR) Dose Index Registry (DIR) with the [employer] (ACR). RADIATION OPTIMIZATION: All CT scans at this facility use at least one of these dose optimization te chniques: automated exposure control; mA and/or kV adjustment per patient size (includes targeted exa ms where dose is matched to clinical indication); or iterative reconstruction.
--- NOTE | 2022-07-23 12:24 | DI.RAD_ITS ---
Exam(s) XR CHEST 2V PA LATERAL EXAM: XR CHEST 2V PA LATERAL CLINICAL HISTORY: possible cva, r/o acute disease TECHNIQUE: COMPARISON: No exams were available for comparison FINDINGS: The heart is not enlarged. Lungs appear clear. No pleural effusion seen. Vascular clips are noted projected over the left hemithorax. IMPRESSION: No evidence of acute process. RADIATION DOSE DELIVERED: Total DLP
--- NOTE | 2022-07-23 13:21 | NUR.NOTE ---
Nursing Note: Neurology appt Jul 30 @ 1:45pm
[2022-07-23] MEDS: Clopidogrel 300 MG TAB PO (14:13)
[2022-07-23] MEDS: Aspirin 81 MG CHEW CH (14:13)
[2022-07-23 14:18] VITALS: BP 132/74; PULSE 65; RESP 17; TEMP 36.8; O2SAT 99
--- NOTE | 2022-07-23 15:29 | NUR.NOTE ---
Nursing Note: Referral faxed to PCP for TIA, needs Echo within the next 2 weeks to be done; holter monitor ordered in ED.
== END 2022-07-23 15:02 | disposition home or self-care (01) ==
PROVIDERS: Emergency Provider Physician Assistant
DX: G45.9 Transient cerebral ischemic attack, unspecified (principal); R20.2 Paresthesia of skin; H53.8 Other visual disturbances; R53.2 Functional quadriplegia; R20.0 Anesthesia of skin
CPT/HCPCS: 36415; 70544; 70547; 80053; 93005; 96374; 99285; 70450; 70551; 71046; 83735; 84484; 85025; 85610; 85730; 93010; J3490

== ENCOUNTER → 2022-07-30 13:47 | Outpatient (BNVA) | payer MEDICARE, SELFPAY | PROVIDERS: Referring Provider Internal Medicine; Visit Provider Psychiatry & Neurology Neurology | DX: G45.9 Transient cerebral ischemic attack, unspecified (principal); G25.0 Essential tremor; R73.9 Hyperglycemia, unspecified; M48.00 Spinal stenosis, site unspecified | CPT/HCPCS: 99215 ==

== ENCOUNTER 2022-08-12 03:39 | Outpatient (CLI) | payer MEDICARE, SELFPAY | END 2022-08-12 03:40 | disposition home or self-care (01) | LOC: RT 03:39 | PROVIDERS: Visit Provider Physician Assistant | DX: G45.9 Transient cerebral ischemic attack, unspecified (principal) | CPT/HCPCS: 93270 ==

== ENCOUNTER 2022-08-16 00:49 | Outpatient (CLI) | payer MEDICARE, SELFPAY ==
[2022-08-16 10:22] LABS: Calculated LDL 113 mg/dL (<100); Cholesterol 207 mg/dL (<200); HDL Cholesterol 81 mg/dL (40-60); Triglyceride 68 mg/dL (<150)
[2022-08-16 10:24] LABS: Hemoglobin A1C 5.5 % (<5.7)
== END 2022-08-16 00:50 | disposition home or self-care (01) ==
LOC: LBO 00:49
PROVIDERS: Visit Provider Psychiatry & Neurology Neurology
DX: R73.9 Hyperglycemia, unspecified (principal); I63.9 Cerebral infarction, unspecified
CPT/HCPCS: 36415; 80061; 80076; 82977; 83036

== ENCOUNTER 2022-09-16 15:17 | Outpatient (CLI) | payer MEDICARE, SELFPAY ==
--- NOTE | 2022-09-16 15:22 | W.CARDEVENT ---
Date of service: 09/16/22 Time of Service: 15:22 Cardiac Event Recorder Referring Provider:: Jeanette Goff Indications:: Transient ischemic attack Cardiac Event Note: This is a 30-day cardiac event monitor ordered for transient cerebral ischemia Rhythm throughout is sinus with an average heart rate of 62. Minimum was 52, maximum 108 There were rare atrial and ventricular ectopic beats There was no definite atrial fibrillation. Episodes labeled atrial fibrillation appeared to be sinus with atrial premature beats and excessive artifact There were no pauses greater than 3 seconds, no high-grade AV block, no apparent patient symptoms
== END 2022-09-16 15:18 | disposition home or self-care (01) ==
LOC: CARDOPNVT 15:17
PROVIDERS: Visit Provider Internal Medicine Cardiovascular Disease
DX: G45.9 Transient cerebral ischemic attack, unspecified (principal); I49.1 Atrial premature depolarization
CPT/HCPCS: 93272

== ENCOUNTER → 2022-09-25 02:47 | Outpatient (CLI) | payer MEDICARE, SELFPAY ==
--- NOTE | 2022-09-25 07:15 | DI.US_ITS ---
APPROVED REPORT EXAM: Comprehensive 2D, Doppler, and color-flow Echocardiogram Patient Location: Out-Patient Supervisor [place] Pl[employer]: Nikkie Redman RDCS (AE) Indications: TIA, CVA Other Information Study Quality: Adequate Conclusion Normal left ventricular wall thickness and chamber size. Estimated ejection fraction is 60%. Wall m otion is normal Normal right ventricular size and systolic function Both atria are normal in size The aortic valve is trileaflet and mildly sclerotic. There is trace aortic regurgitation Normal mitral valve with trace to mild regurgitation Normal tricuspid valve with trace regurgitation. Estimated right ventricular systolic pressure is 21 mmHg Wall motion Left Ventricle The left ventricle is normal size. The left ventricular systolic function is normal. The left ventric ular ejection fraction is within the normal range. There is normal left ventricular wall thickness. T here is normal LV segmental wall motion. There is no ventricular septal defect visualized. LVEF is 60 %. Right Ventricle The right ventricle is normal size. The right ventricular systolic function is normal. The RVSP is 20 .8 mmHg. Atria The left atrium size is normal. The right atrium size is normal. The interatrial septum is intact wit h no evidence for an atrial septal defect. Aortic Valve The aortic valve is mildly sclerotic Aortic valve is trileaflet. There is no aortic valvular stenosis . Trace aortic regurgitation. Mitral Valve The mitral valve is normal in structure. No evidence of mitral valve stenosis. Trace to mild mitral r egurgitation. Tricuspid Valve The tricuspid valve is normal in structure. There is no tricuspid valve stenosis. Trace tricuspid reg urgitation. Pulmonic Valve The pulmonary valve is normal in structure. There is no pulmonic valvular stenosis. Mild to moderate pulmonic regurgitation. Great Vessels The aortic root is normal in size. The ascending aorta is normal in size. Aortic arch is normal in ca liber. IVC is normal in size and collapses >50% with inspiration. Pericardium There is no pericardial effusion. 2D Dimensions IVSD d PLAX 0.74 cm F: 0.6-1.0 LV Vol A2C d MOD 92.8 mL LVPW d PLAX 0.76 cm F: 0.6 - 1.0 LV Vol A4C d MOD 80.9 mL LVID d PLAX 4.36 cm F: 3.8 - 5.2 LA vol/ BSA A2C s A-L 15.0 mL/m2 LVDs 2.90 cm F: 2.2 - 3.5 LA vol/ BSA A4C s A-L 15.2 mL/m2 Ao Root d 2.75 cm F: 2.7 - 3.3 LA Vol/ BSA Biplane s A-L 15.8 mL/m2 RA Area A4C 10.08 cm2 LA Area A4C s MOD 10.97 cm2 RA Vol/ BSA A4C s A-L 12.2 mL/m2 LA Area A2C s MOD 10.40 cm2 Ao Asc Diam d 3.12 cm F: 2.3 - 3.1 LV EF A4C MOD 60.9 % LV EF Teichholz 62.0 % LV EF A2C MOD 59.0 % LVEF (Samson's) 59.38 % F: 54 - 74 LV EF Biplane MOD 59.4 % LV Volume 71.13 mL F: 46 - 106 SV 51.97 mL LV Volume Index 44.45 mL/m2 F: 29 - 61 SV Index 32.50 mL/m2 LV Vol Biplane MOD 87.5 mL FS 33.15 % M-Mode TAPSE 1.79 cm (M/F) >1.7 LV Diastology MV E' medial 0.059 (>0.07 m/s) E/A Ratio 0.8 LV E/e MED 9.35 (<14) MV E Vmax 0.55 (0.4-1.3 m/s) MV E' lateral 0.075 (>0.1 m/s) MV A Vmax 0.70 (0.4-1.3 m/s) LV E/e LAT 7.30 (<14) MV E/A Ratio 0.75 MV E/E' medial 9.39 MV E/E' lateral 7.32 Aortic Valve LVOT Area 2.70 cm2 AoV Area Vmax 2.28 cm2 LVOT Vmax 1.10 m/s AoV Area/ BSA (Vmax) 1.43 cm2/m2 LVOT Mean [place]. 0.67 m/s ESEQUIEL Mean [place]. 1.98 cm2 LVOT Peak Grad 4.8 mmHg ESEQUIEL Mean [place]. Index 1.24 cm2/m2 LVOT Mean Grad 2.2 mmHg LVOT VTI 0.274 m LVOT Diam s 1.85 cm AoV Vmax 1.29 m/s Velocity Ratio 0.85 AoV Mean [place]. 0.91 m/s AoV Peak Grad 6.7 mmHg LVOT SV 73.72 mL AoV Mean Grad 3.7 mmHg AoV VTI 0.298 m AoV Area VTI 2.47 cm2 AoV Area/ BSA (VTI) 1.54 cm/m2 Mitral Valve MV DT 276 (160-240 msec) MV PHT 80 msec MV Area PHT 2.75 cm2 MV VTI 0.302 m MV Area VTI 2.44 (4.0-6.0 cm2) Pulmonary Valve PV Vmax 0.74 (0.5-1.5 m/s) RVOT Peak Gr. 1.10 mmHg PV Peak Grad 2.2 mmHg RVOT Mean Gr. 0.45 mmHg PV Mean Grad 1.1 mmHg RVOT VTI 0.135 m PV VTI 0.168 m RVOT Vmax 0.53 m/s Tricuspid Valve TR Peak Grad 17.8 mmHg TR Vmax 2.11 m/s RA Pressure 3.00 mmHg RVSP (TR) 20.8 mmHg
== END ==
PROVIDERS: PCP Nurse Practitioner Family; Visit Provider Psychiatry & Neurology Neurology
DX: I63.9 Cerebral infarction, unspecified (principal)
CPT/HCPCS: 93306

== ENCOUNTER 2022-09-26 03:08 | Outpatient (CLI) | payer MEDICARE, SELFPAY ==
[2022-09-26 13:45] LABS: ALT 30 U/L (14-59); AST 28 U/L (15-37); Albumin 3.6 g/dL (3.4-5.0); Alkaline Phosphatase 126 U/L (46-116); Bilirubin, Direct 0.1 mg/dL (0.0-0.2); Bilirubin, Total 0.4 mg/dL (0.2-1.0); GGT 116 U/L (5-55); Total Protein 7.5 g/dL (6.4-8.2)
== END 2022-09-26 03:09 | disposition home or self-care (01) ==
PROVIDERS: Student in an Organized Health Care Education/Training Program; PCP Nurse Practitioner Family
DX: K51.919 Ulcerative colitis, unspecified with unspecified complications (principal)
CPT/HCPCS: 36415; 80076; 82977

== ENCOUNTER → 2022-10-02 12:10 | Outpatient (BNVA) | payer MEDICARE, SELFPAY | PROVIDERS: PCP Nurse Practitioner Family; Visit Provider Psychiatry & Neurology Neurology | DX: I69.334 Monoplegia of upper limb following cerebral infarction affecting left non-dominant side (principal); Z79.82 Long term (current) use of aspirin; G25.0 Essential tremor; M48.061 Spinal stenosis, lumbar region without neurogenic claudication; M54.32 Sciatica, left side | CPT/HCPCS: 99214 ==

== ENCOUNTER → 2022-10-07 14:10 | Outpatient (BNVA) | payer MEDICARE, SELFPAY | PROVIDERS: PCP Nurse Practitioner Family; Visit Provider Student in an Organized Health Care Education/Training Program | DX: G54.0 Brachial plexus disorders (principal); M75.81 Other shoulder lesions, right shoulder | CPT/HCPCS: 20610; J1040 ==

== ENCOUNTER 2023-03-11 02:46 | Outpatient (CLI) | payer MEDICARE, SELFPAY ==
[2023-03-11 11:21] LABS: Abs Immature Grans 0.02 10^3/uL (0.0-0.06); Absolute Basophil Count 0.04 10^3/uL (0.0-0.2); Absolute Eosinophil Count 0.19 10^3/uL (0.0-0.7); Absolute Lymphocyte Count 1.74 10^3/uL (1.2-3.4); Absolute Monocyte Count 0.39 10^3/uL (0.1-0.8); Absolute Neutrophil Count 3.59 10^3/uL (1.2-6.7); Basophils % 0.7; Eosinophils % 3.2; HCT 39.1 % (36.0-46.0); HGB 12.9 g/dL (11.2-15.7); Immature Grans % 0.3; Lymphocytes % 29.1; MCH 29.9 pg (27.0-33.0); MCV 91 fL (80-95); MPV 9.2 fL (8.0-11.0); Monocytes % 6.5; Neutrophils % 60.2; Platelet Count 239 10^3/uL (130-400); RBC 4.32 10^6/uL (3.93-5.22); RDW 12.5 % (11.7-14.6); RDW-SD 42.2 fL; WBC 5.97 10^3/uL (4.4-10.8)
[2023-03-11 11:29] LABS: ESR 12 mm/hr (0-30)
[2023-03-11 11:40] LABS: ALT 31 U/L (14-59); AST 24 U/L (15-37); Albumin 3.4 g/dL (3.4-5.0); Alkaline Phosphatase 111 U/L (46-116); Anion Gap 6.2 mmol/L (3-11); BUN 17 mg/dL (7-18); Bilirubin, Direct 0.1 mg/dL (0.0-0.2); Bilirubin, Total 0.2 mg/dL (0.2-1.0); C-Reactive Protein 0.61 mg/dL (0.0-0.3); CO2 28.8 mmol/L (21.0-32.0); CREATININE 0.8 mg/dL (0.55-1.02); Calcium 8.8 mg/dL (8.5-10.1); Chloride 107 mmol/L (98-107); Estimated GFR 77.75 (mL/min/1.73m2); GGT 64 U/L (5-55); Glucose 73 mg/dL (74-106); Potassium 3.8 mmol/L (3.5-5.1); Sodium 142 mmol/L (136-145)
[2023-03-13 15:48] LABS: ANA Interpretation Positive (Negative); ANA Titer Pattern 1:160 Speckled
[2023-03-13 16:16] LABS: Smooth Muscle Ab Screen Negative (Negative)
[2023-03-13 18:46] LABS: Mitochondrial Ab, M2 <0.1 U
== END 2023-03-11 02:47 | disposition home or self-care (01) ==
LOC: LBO 02:46
PROVIDERS: PCP Nurse Practitioner Family; Visit Provider Nurse Practitioner Adult Health
DX: R74.8 Abnormal levels of other serum enzymes (principal); K51.00 Ulcerative (chronic) pancolitis without complications
CPT/HCPCS: 36415; 80053; 80076; 83516; 85652; 82977; 85025; 86038; 86140; 86255

== ENCOUNTER 2023-05-05 15:18 | Outpatient (CLI) | payer MEDICARE, SELFPAY ==
--- NOTE | 2023-05-05 15:54 | DI.RAD_ITS ---
Exam(s) XR HIP LT COMPLETE AP PELVIS EXAM: XR HIP LT COMPLETE AP PELVIS CLINICAL HISTORY: LEFT HIP PAIN. TECHNIQUE: 2D digital imaging was performed. COMPARISON: No exams were available for comparison FINDINGS: Two views No evidence of pelvic nor hip fractures. Surgical clips are noted in both inguinal regions as well a s in the left iliac fossa. There are no obvious degenerative changes in the hips. Additional latera l view of the left hip reveals no joint space narrowing nor osteophytes nor femoral neck excrescence. SI joints appear unremarkable. No osseous lesions. IMPRESSION: No significant osseous findings. DATA REPOSITORY: RADIATION DOSE DELIVERED:
== END 2023-05-05 15:19 | disposition home or self-care (01) ==
LOC: DIORS 15:19
PROVIDERS: PCP Nurse Practitioner Family; Referring Provider Nurse Practitioner Family; Visit Provider Student in an Organized Health Care Education/Training Program
DX: M75.81 Other shoulder lesions, right shoulder (principal); M48.061 Spinal stenosis, lumbar region without neurogenic claudication; R29.898 Other symptoms and signs involving the musculoskeletal system
CPT/HCPCS: 20610; 73502; J1040

== ENCOUNTER 2023-09-24 05:36 | Outpatient (CLI) | payer MEDICARE, SELFPAY ==
[2023-09-24 12:45] LABS: HCT 39.9 % (36.0-46.0); MCH 30.2 pg (27.0-33.0); MCHC 32.6 % (32.0-36.0); MCV 93 fL (80-95); MPV 9.9 fL (8.0-11.0); Platelet Count 243 10^3/uL (130-400); RDW 12.2 % (11.7-14.6); RDW-SD 41.7 fL; WBC 5.04 10^3/uL (4.4-10.8)
[2023-09-24 13:01] LABS: Anion Gap 6.9 mmol/L (3-11); BUN 17 mg/dL (7-18); CO2 28.1 mmol/L (21.0-32.0); CREATININE 0.9 mg/dL (0.55-1.02); Calcium 9.4 mg/dL (8.5-10.1); Chloride 108 mmol/L (98-107); Glucose 98 mg/dL (74-106); Potassium 4.9 mmol/L (3.5-5.1); Sodium 143 mmol/L (136-145)
== END 2023-09-24 05:37 | disposition home or self-care (01) ==
LOC: LOS 05:36
PROVIDERS: PCP Nurse Practitioner Family; Visit Provider Nurse Practitioner Family
DX: D64.9 Anemia, unspecified (principal); G62.9 Polyneuropathy, unspecified
CPT/HCPCS: 36415; 80048; 85027

== ENCOUNTER 2023-12-22 10:50 | Outpatient (CLI) | payer MEDICARE, SELFPAY ==
--- NOTE | 2023-12-22 09:30 | DI.RAD_ITS ---
Exam(s) XR SHOULDER RT COMPLETE 2+V EXAM: XR SHOULDER RT COMPLETE 2+V CLINICAL HISTORY: R shoulder pain. TECHNIQUE: 2D digital imaging was performed of the right shoulder. Three images were obtained. Gra osito, Y-view and axillary views were obtained. COMPARISON: CR XR SHOULDER RT COMPLETE 2+V from 02/26/2021 FINDINGS: BONES: No acute fracture is present. No bony destructive lesion is seen. Benign-appearing subchondral cysts are seen in the humeral head. JOINTS: No dislocation present. Degenerative changes are seen at the acromioclavicular joint. The gl enohumeral joint is well maintained. SOFT TISSUE: The visualized lung [place]on are clear. IMPRESSION: Mild degenerative changes of the shoulder. DATA REPOSITORY: RADIATION DOSE DELIVERED:
== END 2023-12-22 10:51 | disposition home or self-care (01) ==
LOC: DIORS 10:51
PROVIDERS: PCP Nurse Practitioner Family; Referring Provider Nurse Practitioner Family; Visit Provider Student in an Organized Health Care Education/Training Program
DX: M75.81 Other shoulder lesions, right shoulder; M19.011 Primary osteoarthritis, right shoulder
CPT/HCPCS: 20611; 73030; J1040

== ENCOUNTER 2024-01-20 15:41 | Outpatient (CLI) | payer MEDICARE, SELFPAY ==
--- NOTE | 2024-01-20 14:55 | DI.RAD_ITS ---
Exam(s) XR SHOULDER LT COMPLETE 2+V EXAM: XR SHOULDER LT COMPLETE 2+V CLINICAL HISTORY: LEFT SHOULDER PAIN. TECHNIQUE: 2D digital imaging was performed. Three views. COMPARISON: CR XR SHOULDER RT COMPLETE 2+V from 12/22/2023 FINDINGS: BONES: No acute fracture is present. No bony destructive lesion is seen. Small degenerative subchond ral cysts near the greater tuberosity. JOINTS: No dislocation present. The AC joint is not well profiled. Mild narrowing of the glenohumer al joint space and mild periarticular spurring. Mild spurring undersurface of the acromion SOFT TISSUE: Normal. IMPRESSION: Mild degenerative changes. DATA REPOSITORY: RADIATION DOSE DELIVERED:
== END 2024-01-20 15:42 | disposition home or self-care (01) ==
LOC: DIORS 15:41
PROVIDERS: PCP Nurse Practitioner Family; Referring Provider Nurse Practitioner Family; Visit Provider Student in an Organized Health Care Education/Training Program
DX: M19.012 Primary osteoarthritis, left shoulder; M67.922 Unspecified disorder of synovium and tendon, left upper arm
CPT/HCPCS: 20610; 73030; J1030

== ENCOUNTER 2024-01-26 11:27 | Outpatient (REF) | payer MEDICARE, SELFPAY ==
[2024-01-26 16:50] LABS: Creatinine,Urine 47.95 mg/dL
[2024-01-26 16:51] LABS: Creatinine,24hr Ur 0.77 g/24hr (0.60-1.80); Total Volume 1650 ml
[2024-01-27 09:12] LABS: Calcium Urine 24 hr 116 mg/24hr (100-300); Timed Urine Volume 1650 mL
== END 2024-01-26 11:28 | disposition home or self-care (01) ==
LOC: LBN 11:27
PROVIDERS: PCP Nurse Practitioner Family; Visit Provider Internal Medicine Endocrinology, Diabetes & Metabolism
DX: M81.0 Age-related osteoporosis without current pathological fracture (principal)
CPT/HCPCS: 81050; 82340; 82570

== ENCOUNTER 2024-03-12 03:09 | Outpatient (CLI) | payer MEDICARE, SELFPAY ==
[2024-03-12 13:27] LABS: Abs Immature Grans 0.01 10^3/uL (0.0-0.06); Absolute Basophil Count 0.06 10^3/uL (0.0-0.2); Absolute Eosinophil Count 0.14 10^3/uL (0.0-0.7); Absolute Lymphocyte Count 1.81 10^3/uL (1.2-3.4); Absolute Monocyte Count 0.28 10^3/uL (0.1-0.8); Absolute Neutrophil Count 3.18 10^3/uL (1.2-6.7); Basophils % 1.1; Eosinophils % 2.6; HGB 12.1 g/dL (11.2-15.7); Immature Grans % 0.2; MCH 29.7 pg (27.0-33.0); MCHC 32.7 % (32.0-36.0); MCV 91 fL (80-95); Monocytes % 5.1; Platelet Count 231 10^3/uL (130-400); RBC 4.07 10^6/uL (3.93-5.22); RDW 12.8 % (11.7-14.6); RDW-SD 42.2 fL; WBC 5.48 10^3/uL (4.4-10.8)
[2024-03-12 13:59] LABS: ALT 46 U/L (14-59); AST 31 U/L (15-37); Albumin 3.4 g/dL (3.4-5.0); Alkaline Phosphatase 120 U/L (46-116); Anion Gap 7.5 mmol/L (3-11); BUN 19 mg/dL (7-18); Bilirubin, Total 0.3 mg/dL (0.2-1.0); CO2 29.5 mmol/L (21.0-32.0); CREATININE 0.8 mg/dL (0.55-1.02); Calcium 8.9 mg/dL (8.5-10.1); Chloride 107 mmol/L (98-107); Estimated GFR 77.27 (mL/min/1.73m2); Glucose 101 mg/dL (74-106); Sodium 144 mmol/L (136-145)
[2024-03-12 14:00] LABS: C-Reactive Protein < 0.50 mg/dL (<or=0.5)
== END 2024-03-12 03:10 | disposition home or self-care (01) ==
LOC: LBO 03:09
PROVIDERS: PCP Nurse Practitioner Family; Visit Provider Nurse Practitioner Adult Health
DX: K51.00 Ulcerative (chronic) pancolitis without complications (principal)
CPT/HCPCS: 36415; 80053; 85025; 86140

== ENCOUNTER → 2024-03-22 09:50 | Outpatient (BNVA) | payer MEDICARE, SELFPAY | PROVIDERS: PCP Nurse Practitioner Family; Referring Provider Nurse Practitioner Family | DX: M19.011 Primary osteoarthritis, right shoulder (principal); M75.81 Other shoulder lesions, right shoulder; M19.012 Primary osteoarthritis, left shoulder; M67.922 Unspecified disorder of synovium and tendon, left upper arm | CPT/HCPCS: 20610; J1010 ==

== ENCOUNTER → 2024-05-07 10:16 | Outpatient (BNVA) | payer MEDICARE, SELFPAY | PROVIDERS: PCP Nurse Practitioner Family; Referring Provider Nurse Practitioner Family; Visit Provider Physician Assistant | DX: M19.011 Primary osteoarthritis, right shoulder (principal) | CPT/HCPCS: 20611; J1010 ==

== ENCOUNTER 2024-05-17 18:52 | Outpatient (CLI) | payer MEDICARE, SELFPAY ==
[2024-05-18 13:59] LABS: Lyme Ab w Rflx to Lyme Confirm Negative (Negative)
[2024-05-20 00:53] LABS: Anaplasma phagocytophilum Negative (Negative); B. miyamotoi PCR Negative (Negative); Babesia divergens/MO-1 Negative (Negative); Babesia duncani Negative (Negative); Babesia microti Negative (Negative); Ehrlichia chaffeensis Negative (Negative); Ehrlichia ewingii/canis Negative (Negative); Ehrlichia muris eauclairensis Negative (Negative)
== END 2024-05-17 18:53 | disposition home or self-care (01) ==
LOC: LBO 18:52
PROVIDERS: PCP Nurse Practitioner Family; Visit Provider Nurse Practitioner Family
DX: R21 Rash and other nonspecific skin eruption (principal)
CPT/HCPCS: 36415; 87798; 86618

== ENCOUNTER → 2024-08-13 10:54 | Outpatient (BNVA) | payer MEDICARE, SELFPAY | PROVIDERS: PCP Nurse Practitioner Family; Referring Provider Nurse Practitioner Family | DX: M19.011 Primary osteoarthritis, right shoulder (principal) | CPT/HCPCS: 20611; J1010 ==

== ENCOUNTER → 2024-11-12 08:28 | Outpatient (BNVA) | payer MEDICARE, SELFPAY | PROVIDERS: PCP Nurse Practitioner Family; Referring Provider Nurse Practitioner Family | DX: M19.011 Primary osteoarthritis, right shoulder (principal) | CPT/HCPCS: 20611; J1010 ==

== ENCOUNTER 2025-01-14 08:28 | Outpatient (CLI) | payer MEDICARE, SELFPAY ==
[2025-01-14 11:06] LABS: HCT 39.4 % (36.0-46.0); HGB 12.8 g/dL (11.2-15.7); MCH 29.7 pg (27.0-33.0); MCHC 32.5 % (32.0-36.0); MCV 91 fL (80-95); MPV 8.6 fL (8.0-11.0); Platelet Count 225 10^3/uL (130-400); RBC 4.31 10^6/uL (3.93-5.22); RDW 12.5 % (11.7-14.6); RDW-SD 41.9 fL; WBC 4.75 10^3/uL (4.4-10.8)
[2025-01-14 11:08] LABS: ESR 3 mm/hr (0-30)
[2025-01-14 11:29] LABS: Anion Gap 7.7 mmol/L (3-11); BUN 24 mg/dL (7-18); CO2 27.3 mmol/L (21.0-32.0); CREATININE 1.1 mg/dL (0.55-1.02); Calcium 9.2 mg/dL (8.5-10.1); Chloride 108 mmol/L (98-107); Glucose 91 mg/dL (74-106); Potassium 5.1 mmol/L (3.5-5.1); Sodium 143 mmol/L (136-145)
[2025-01-14 11:54] LABS: C-Reactive Protein < 0.50 mg/dL (<or=0.5)
== END 2025-01-14 08:29 | disposition home or self-care (01) ==
LOC: LBO 08:28
PROVIDERS: PCP Nurse Practitioner Family; Visit Provider Internal Medicine Hematology & Oncology
DX: D64.9 Anemia, unspecified (principal); K51.00 Ulcerative (chronic) pancolitis without complications
CPT/HCPCS: 36415; 80048; 85027; 85652; 86140

== ENCOUNTER 2025-01-14 09:54 | Outpatient (CLI) | payer MEDICARE, SELFPAY ==
--- NOTE | 2025-01-14 09:45 | RT.EKG_ITS ---
APPROVED REPORT Exam: Resting ECG Reason for Exam: pre op Patient Location: O HR:53 bpm ECG Measurements Heart Rate 53 AXIS ND 176 P 54 QRSd 89 QRS -3 QT 443 T 10 QTc 416 Conclusion Sinus rhythm...normal P axis, V-rate 50- 99 Borderline T abnormalities, anterior leads...T flat or neg, V2-V4
== END 2025-01-14 09:55 | disposition home or self-care (01) ==
LOC: DI.CM 09:54
PROVIDERS: PCP Nurse Practitioner Family; Visit Provider Nurse Practitioner Family
DX: Z01.818 Encounter for other preprocedural examination (principal)
CPT/HCPCS: 93010

== ENCOUNTER → 2025-03-18 09:28 | Outpatient (BNVA) | payer MEDICARE, SELFPAY | PROVIDERS: PCP Nurse Practitioner Family; Visit Provider Physician Assistant | DX: M19.011 Primary osteoarthritis, right shoulder (principal) | CPT/HCPCS: 20611; J1010 ==

== ENCOUNTER → 2025-06-15 10:11 | Outpatient (BNVA) | payer MEDICARE, SELFPAY | PROVIDERS: PCP Nurse Practitioner Family; Referring Provider Nurse Practitioner Family; Visit Provider Podiatrist | DX: M54.32 Sciatica, left side (principal); L60.1 Onycholysis | CPT/HCPCS: 99213 ==

== ENCOUNTER → 2025-06-24 09:24 | Outpatient (BNVA) | payer MEDICARE, SELFPAY | PROVIDERS: PCP Nurse Practitioner Family; Referring Provider Nurse Practitioner Family; Visit Provider Physician Assistant | DX: M19.011 Primary osteoarthritis, right shoulder (principal) | CPT/HCPCS: 20611; J1010 ==

== ENCOUNTER → 2025-07-20 09:26 | Outpatient (BNVA) | payer MEDICARE, SELFPAY | PROVIDERS: PCP Nurse Practitioner Family; Referring Provider Nurse Practitioner Family; Visit Provider Student in an Organized Health Care Education/Training Program | DX: M19.011 Primary osteoarthritis, right shoulder (principal) | CPT/HCPCS: 99213 ==

== ENCOUNTER → 2025-09-30 09:27 | Outpatient (BNVA) | payer MEDICARE, SELFPAY | PROVIDERS: PCP Nurse Practitioner Family; Referring Provider Nurse Practitioner Family; Visit Provider Physician Assistant | DX: M19.011 Primary osteoarthritis, right shoulder (principal) | CPT/HCPCS: 20611; J1010 ==